=== PATIENT | female | born 1975 | race Caucasian/White ===

== ENCOUNTER 2025-02-18 20:58 | Emergency (ER) | payer OTHER, SELFPAY ==
[2025-02-18 21:09] VITALS: BP 133/98
[2025-02-18 21:11] VITALS: BMI 27.7
[2025-02-18 21:37] LABS: Hematocrit 39.5 % (37.0-47.0); Hemoglobin 13.5 g/dL (12.0-16.0); Mean Corp Hgb Conc. 34.2 g/dL (33.0-37.0); Mean Corpuscular Volume 87.6 fL (81.0-99.0); Nucleated Red Blood Cells % 0 %; Platelet Count 292 10^3/uL (130-400); Red Cell Dist. Width 12.7 % (11.5-14.5)
--- NOTE | 2025-02-18 21:37 | ED.GENMED ---
History of Present Illness
General
Chief Complaint: Change in Mental Status
Time Seen by Provider: 02/18/25 21:24
History of Present Illness
History of Present Illness:
Patient presents to the emergency department with change in mental status. She is a 49-year-old female presenting from the correctional facility with irregular behavior. Per staff, patient has been refusing to take her medications recently
including Seroquel and divalproex. Patient is not cooperative. She is having grandiose and paranoid delusions. She has reportedly been eating her feces. She was referred in for medical evaluation.
Past History
Past History
ED Past Medical History: Asthma and Other (Pneumonia)
ED Past Surgical History: and Other (Tooth removal)
Social History
Tobacco: Smoker
Alcohol: None
Drug: None
Personal: Single
Living: with roommate
Phy Exam
Physical Exam
Physical Exam:
GENERAL APPEARANCE: Unkempt, awake in no distress
EYES lids/conjunctiva normal
EARS/NOSE/THROAT Mucous membranes tacky, uvula midline without oral pharyngeal erythema, exudate or swelling
HEAD/NECK normocephalic atraumatic, neck is supple.
RESPIRATORY respiratory effort normal, speaks in full sentences, no accessory muscle use. Lungs clear to auscultation without rhonchi, wheezes, rales
CARDIAC Regular rate and rhythm, no edema.
ABDOMINAL Soft, ND/NT.
MUSCLES/EXTREMITIES No abnormal range of motion, no swelling.
SKIN Warm, pink and dry. No rashes
NEUROLOGICAL Speech is clear, cranial nerves II through XII intact. 5 out of 5 strength in all extremities
PSYCH agitated, grandiose, paranoid.
Course
Orders/Labs/Results
Orders:
Orders
02/18/25 21:12
Complete Blood Count/With Diff Urgent
Comprehensive Metabolic Panel Urgent
Abnormal Lab Results
02/18/25
21:12
WBC 12.6 H 10^3/uL
(4.8-10.8)
MPV 11.6 H fL
(7.4-10.4)
Absolute Neuts (auto) 10.2 H 10^3/uL
(1.4-6.5)
Absolute Monos (auto) 0.9 H 10^3/uL
(0.1-0.6)
Neutrophils % 80.7 H %
(42.2-75.2)
Lymphocytes % 11.1 L %
(20.5-51.1)
BUN 24 H mg/dl
(7-17)
Glucose 118 H mg/dl
(70-99)
AST 58 H U/L
(14-36)
ALT 42 H U/L
(0-35)
Total Protein 8.4 H g/dl
(6.3-8.2)
Albumin 5.2 H g/dl
(3.5-5.0)
02/18/25 21:12
02/18/25 21:12
Vital Signs
Initial and Last Documented VS:
Initial Vital Signs
Pulse Ox
98
02/18/25 21:00
Last Documented Vital Signs
Temp Pulse Resp BP Pulse Ox
99.1 F 109 25 123/92 98
02/18/25 21:11 02/18/25 22:00 02/18/25 22:00 02/18/25 22:00 02/18/25 21:40
*Pulse Oximetry
SaO2: 98
Oxygen Mode of Delivery: Room air
Patient hypoxic: no
*Critical Care Note
Total Time (30-74mins, 75-104mins- exclusive of procedures): Not Applicable
ED Attending Note
ED Attending Note
ED Attending Note:
Patient with psychiatric decompensation in the setting of refusing to take her medications. There does not appear to be any medical emergency at this time. She is medically cleared to return back to the [facility] for treatment and evaluation by the
crisis team there.
-
Portions of this chart may have been created with voice recognition software.� Occasional wrong word or��sound alike� substitutions may have occurred due to the inherent limitations of voice recognition software.
Discharge Plan
Departure
Patient Disposition: Intermediate
Date of Disposition: 02/18/25
Time of Disposition: 22:15
Discharge Problem:
Psychosis
Prescriptions:
No Action
acetaminophen [Tylenol] 325 mg Tablet
325 mg PO Q6H PRN (Reason: pain )
multivitamin [TAB A MEGAN] Tablet
1 tab PO DAILY
albuterol sulfate 2.5 mg /3 mL (0.083 %) Solution For Nebulization
2.5 mg INHALATION QID PRN (Reason: breathing trouble )
divalproex 250 mg Tablet,Delayed Release (Dr/Ec)
125 mg PO DAILY
sertraline 100 mg Tablet
100 mg PO DAILY
quetiapine 100 mg Tablet
100 mg PO DAILY
baclofen 10 mg Tablet
10 mg PO TID PRN (Reason: muscle spasms)
docusate sodium 100 mg Capsule
100 mg PO BID
gabapentin 300 mg Capsule
300 mg PO BID
omeprazole 20 mg Capsule,Delayed Release(Dr/Ec)
20 mg PO DAILY
fiber Tablet
1,250 tab PO BID
Activity Restrictions/Additional Instructions:
Vania Sanz is medically cleared to return to intermediate and will need evaluation by the crisis team for her decompensated psychosis. Please send her back to the emergency department with any concerning or worsening medical symptoms
Interventions
Interventions:
*Risk Screen - Suicide Last Done: 02/18/25 21:00
*General Assessment Last Done: 02/18/25 21:00
*Neglect/Abuse Screening Last Done: 02/18/25 21:00
*ED- Fall Risk Assessment Last Done: 02/18/25 21:00
*ED COVID-19 Vaccine History Last Done: 02/18/25 21:00
ED- Pulmonary Assessment Last Done: 02/18/25 21:00
ED-Psychological Assessment Last Done: 02/18/25 21:30
ED- Neurological Assessment Last Done: 02/18/25 21:00
ED- Cardiac Assessment Last Done: 02/18/25 21:00
ED Swallowing Screen Last Done: 02/18/25 21:31
Discharge Date and Time
Print Language: SLOVENIAN
[2025-02-18 22:00] VITALS: BP 123/92
[2025-02-18 22:07] LABS: ALT (SGPT) 42 U/L (0-35); AST (SGOT) 58 U/L (14-36); Albumin 5.2 g/dl (3.5-5.0); Alkaline Phosphatase 69 U/L (38-126); Blood Urea Nitrogen 24 mg/dl (7-17); Calcium 9.7 mg/dl (8.4-10.2); Carbon Dioxide 23 mmol/L (22-30); Chloride 107 mmol/L (98-107); Estimated Creatinine Clearance 105 ml/min; Glucose 118 mg/dl (70-99); Potassium 3.6 mmol/L (3.5-5.1); Sodium 142 mmol/L (135-145); Total Protein 8.4 g/dl (6.3-8.2); eGFR > 60.00
== END 2025-02-18 22:32 ==
LOC: EMR 20:58
PROVIDERS: EMERGENCY PHYSICIAN Emergency Medicine
DX: F29 Unspecified psychosis not due to a substance or known physiological condition (principal); J45.909 Unspecified asthma, uncomplicated; T43.596A Underdosing of other antipsychotics and neuroleptics, initial encounter; T42.6X6A Underdosing of other antiepileptic and sedative-hypnotic drugs, initial encounter; Z91.128 Patient's intentional underdosing of medication regimen for other reason
CPT/HCPCS: 99283; 80053; 85025